=== PATIENT | female | born 1975 | race Caucasian/White ===

== ENCOUNTER 2016-10-28 12:10 | Emergency (ER) | payer OTHER ==
--- NOTE | 2016-10-28 13:38 | UC ---
Ear Complaint HPI - HPI Summary HPI Summary: treated for sinusitis and OM 2 weeks ago with Z-pack. Got better, but didn't totally resolve. FEels like ears have fluid in them, has sinus pressure and a dizzy feeling. Headache. No fever. No vomiting. No blurry vision. No long history of sinus or ear infections. - History of Current Complaint Chief Complaint: UCRespiratory Stated Complaint: HEADACHE,DIZZINESS,EAR PAIN Time Seen by Provider: 10/28/16 13:28 Hx Obtained From: Patient Hx Last Menstrual Period: 10/14/16 Onset/Duration: Gradual Onset, Lasting Weeks - 2 Severity Initially: Mild Severity Currently: Moderate Aggravating Factors: Nothing Alleviating Factors: Nothing Associated Signs/Symptoms: Positive: Hearing Loss - "underwater feeling" - Allergies/Home Medications Allergies/Adverse Reactions: Allergies Allergy/AdvReac Type Severity Reaction Status Date / Time Aspirin Allergy Severe Hives Verified 10/28/16 12:51 Cefprozil [From Cefzil] Allergy Severe Hives Verified 10/28/16 12:51 Ibuprofen Allergy Severe Hives Verified 10/28/16 12:51 Morphine Allergy Intermediate rash, Verified 10/28/16 12:51 vomiting Sulfa Drugs Allergy Intermediate Rash Verified 10/28/16 12:51 Methimazole Allergy Rash Verified 10/28/16 12:51 Topiramate [From Topamax] Allergy Hives Verified 10/28/16 12:51 Penicillins AdvReac Unknown does not Verified 10/28/16 12:51 work Home Medications: Home Medications Zolpidem TAB* [Ambien*] 10 mg PO BEDTIME PRN 10/28/16 [History Confirmed ] PMH/Surg Hx/FS Hx/Imm Hx Endocrine History Of: Reports: Thyroid Disease - graves disease, Hypothyroidism Denies: Diabetes, Hyperthyroidism, Dyslipidemia Cardiovascular History Of: Denies: Cardiac Disorders, Hypertension, Pacemaker/ICD, Myocardial Infarction , Congestive Heart Failure, Atrial Fibrillation, Deep Vein Thrombosis, Bleeding Disorders Respiratory History Of: Denies: COPD, Asthma, Pneumonia, Pulmonary Embolism GI/ History Of: Denies: Gastroesophageal Reflux, Ulcer, Gastrointestinal Bleed, Gall Bladder Disease, Kidney Stones, Diverticulitis, Renal Disease, Urosepsis Neurological History Of: Denies: TIA, CVA, Dementia, Seizures, Migraine Psychological History Of: Denies: Anxiety, Depression, Bipolar Disorder, Schizophrenia, Post Traumatic Stress Disorder Cancer History Of: Denies: Lung Cancer, Colorectal Cancer, Breast Cancer, Prostate Cancer, Cervical Cancer Other History Of: Negative For: HIV, Hepatitis B, Hepatitis C - Surgical History Surgical History: Yes Surgery Procedure, Year, and Place: thyroidectomy,. right pneumo thorax surgery. lung surgery. right hand surgery. CERVICAL HERNIATED DISC FUSION , REMOVAL OF BONE SPURS-DECEMBER 2015 - Family History Known Family History: Positive: None - Social History Occupation: Employed Full-time Lives: With Family Alcohol Use: Rare Substance Use Type: None Smoking Status (MU): Former Smoker Type: Cigarettes Amount Used/How Often: 2 PPD Length of Time of Smoking/Using Tobacco: 22 Years Have You Smoked in the Last Year: No When Did the Patient Quit Smoking/Using Tobacco: 07/09/12 - Immunization History Most Recent Influenza Vaccination: Not the Season Review of Systems Constitutional: Negative Skin: Negative Eyes: Negative ENT: Ear Ache, Nasal Discharge Respiratory: Cough - dry Cardiovascular: Negative Gastrointestinal: Negative Genitourinary: Negative Motor: Negative Neurovascular: Negative Musculoskeletal: Negative Neurological: Headache Psychological: Negative All Other Systems Reviewed And Are Negative: Yes Physical Exam Triage Information Reviewed: Yes Appearance: Well-Appearing, No Pain Distress Vital Signs: Initial Vital Signs Temp 98.3 F 10/28/16 12:52 Pulse 73 10/28/16 12:52 Resp 18 10/28/16 12:52 BP 114/77 10/28/16 12:52 Pulse Ox 99 10/28/16 12:52 Vital Signs Reviewed: Yes Eye Exam: Normal Eyes: Positive: Conjunctiva Clear ENT: Positive: Hearing grossly normal, Pharynx normal, Nasal congestion, TM dull - bilat with fluid levels; right eardrum has a yellowish tinge and bulges slightly. Negative: Tonsillar swelling, Tonsillar exudate, Trismus, Muffled/ hoarse voice Neck exam: Normal Neck: Positive: Supple Respiratory Exam: Normal Respiratory: Positive: Lungs clear, Normal breath sounds, No respiratory distress, No accessory muscle use Cardiovascular Exam: Normal Musculoskeletal Exam: Normal Neurological Exam: Normal Psychological Exam: Normal Skin Exam: Normal Ear Complaint Course/Dx - Differential Dx/Diagnosis Differential Diagnosis/HQI/PQRI: Otitis Externa, Otitis Media Provider Diagnoses: serous otitis media Discharge - Discharge Plan Condition: Stable Disposition: HOME Prescriptions: DOXYcycline CAP(*) [DOXYcycline 100MG CAP(*)] 100 mg PO BID #20 cap Fluticasone NASAL SPRAY 50MCG* [Flonase NASAL SPRAY 50MCG*] 2 spray BOTH NARES DAILY #1 btl Patient Education Materials: Serous Otitis Media (ED) Forms: *Work Release Referrals: Donita Harrison, HAND SLITTER [Primary Care Provider] -
[2016-10-28 13:44] VITALS: BP 121/80
== END 2016-10-28 13:44 | disposition home or self-care (01) ==
LOC: UCCORT 12:10
DX: H65.93 Unspecified nonsuppurative otitis media, bilateral (principal); Z88.6 Allergy status to analgesic agent; Z88.1 Allergy status to other antibiotic agents; Z88.5 Allergy status to narcotic agent; Z88.0 Allergy status to penicillin; Z88.2 Allergy status to sulfonamides; Z87.891 Personal history of nicotine dependence
CPT/HCPCS: 99212; G0463

== ENCOUNTER 2016-12-28 12:02 | Emergency (ER) | payer OTHER ==
[2016-12-28 13:21] VITALS: BP 108/78
--- NOTE | 2016-12-28 14:13 | UC ---
Dental HPI - HPI Summary HPI Summary: Pt states she has had a toothache on the left side since Friday, states she has an appointment Friday with [facility] to have the tooth removed but cannot tolerate the pain until then. Taking tylenol for pain. [ End ] - History of Current Complaint Chief Complaint: UCDentalProblem Stated Complaint: TOOTH PAIN Time Seen by Provider: 12/28/16 14:04 Hx Obtained From: Patient Hx Last Menstrual Period: 12/27/16 ?: No Onset/Duration: Gradual Onset Alleviating: OTC Meds - Allergies/Home Medications Allergies/Adverse Reactions: Allergies Allergy/AdvReac Type Severity Reaction Status Date / Time Aspirin Allergy Severe Hives Verified 12/28/16 13:21 Cefprozil [From Cefzil] Allergy Severe Hives Verified 12/28/16 13:21 Ibuprofen Allergy Severe Hives Verified 12/28/16 13:21 Morphine Allergy Intermediate rash, Verified 12/28/16 13:21 vomiting Sulfa Drugs Allergy Intermediate Rash Verified 12/28/16 13:21 Methimazole Allergy Rash Verified 12/28/16 13:21 Topiramate [From Topamax] Allergy Hives Verified 12/28/16 13:21 Penicillins AdvReac Unknown does not Verified 12/28/16 13:21 work PMH/Surg Hx/FS Hx/Imm Hx Previously Healthy: Yes Endocrine History Of: Reports: Thyroid Disease - graves disease, Hypothyroidism Denies: Diabetes, Hyperthyroidism, Dyslipidemia Cardiovascular History Of: Denies: Cardiac Disorders, Hypertension, Pacemaker/ICD, Myocardial Infarction , Congestive Heart Failure, Atrial Fibrillation, Deep Vein Thrombosis, Bleeding Disorders Respiratory History Of: Denies: COPD, Asthma, Pneumonia, Pulmonary Embolism GI/ History Of: Denies: Gastroesophageal Reflux, Ulcer, Gastrointestinal Bleed, Gall Bladder Disease, Kidney Stones, Diverticulitis, Renal Disease, Urosepsis Neurological History Of: Denies: TIA, CVA, Dementia, Seizures, Migraine Psychological History Of: Denies: Anxiety, Depression, Bipolar Disorder, Schizophrenia, Post Traumatic Stress Disorder Cancer History Of: Denies: Lung Cancer, Colorectal Cancer, Breast Cancer, Prostate Cancer, Cervical Cancer Other History Of: Negative For: HIV, Hepatitis B, Hepatitis C - Surgical History Surgical History: Yes Surgery Procedure, Year, and Place: thyroidectomy,. right pneumo thorax surgery. lung surgery. right hand surgery. CERVICAL HERNIATED DISC FUSION , REMOVAL OF BONE SPURS-DECEMBER 2015 - Family History Known Family History: Positive: None - Social History Occupation: Employed Full-time Lives: With Family Alcohol Use: Rare Substance Use Type: None Smoking Status (MU): Former Smoker Type: Cigarettes Amount Used/How Often: 1ppd Length of Time of Smoking/Using Tobacco: 22 Years Have You Smoked in the Last Year: No When Did the Patient Quit Smoking/Using Tobacco: 07/09/12 Cessation Counseling: Patient Advised to Stop - Immunization History Most Recent Influenza Vaccination: none Review of Systems Constitutional: Negative Skin: Negative Eyes: Negative ENT: Dental Pain Respiratory: Negative Cardiovascular: Negative Gastrointestinal: Negative Genitourinary: Negative Motor: Negative Neurovascular: Negative Musculoskeletal: Negative Neurological: Negative Psychological: Negative All Other Systems Reviewed And Are Negative: Yes Physical Exam Triage Information Reviewed: Yes Appearance: Well-Appearing, No Pain Distress, Well-Nourished Vital Signs: Initial Vital Signs Temp 98.3 F 12/28/16 13:16 Pulse 67 12/28/16 13:16 Resp 16 12/28/16 13:16 BP 108/78 12/28/16 13:16 Pulse Ox 98 12/28/16 13:16 Vital Signs Reviewed: Yes Eye Exam: Normal ENT Exam: Normal Dental Exam: Normal Dental: Positive: Percussion Tenderness @, Gross Decay/Caries @. Negative: Dental Fracture @ Neck exam: Normal Neck: Positive: 1 Respiratory Exam: Normal Cardiovascular Exam: Normal Musculoskeletal Exam: Normal Neurological Exam: Normal Psychological Exam: Normal Skin Exam: Normal Dental Complaint Course/Dx - Course Course Of Treatment: Moderate tooth pain likely failed filling and will need extraction or root canal . No induration or abscess to be drained at this time. advised to stop smoking. - Differential Dx/Diagnosis Differential Diagnosis/Dx: Dental Abscess, Dental Caries Provider Diagnoses: dental abscess Discharge - Discharge Plan Condition: Good Disposition: HOME Prescriptions: Clindamycin Cap(NF) [Cleocin 300 mg Cap(NF)] 300 mg PO TID #21 cap Lidocaine 2% VISCOUS* [Xylocaine 2% Viscous*] 15 ml SWISH SPIT Q4H PRN #1 btl PRN Reason: Pain Methylprednisolone [Medrol Dosepak 4 MG*] 0 mg PO .SEE ANDIE INSTRUCTION #1 tab Patient Education Materials: Dental Abscess (ED) Referrals: Donita Harrison TUNNEL MINER [Primary Care Provider] - 3 Days (Keep dental appt in 2 days ) Images Dental: 1 - dental caries with significant tenderness to palpation and mild swelling of the gums linguial side
== END 2016-12-28 14:24 | disposition home or self-care (01) ==
LOC: UCCORT 12:02
DX: K04.7 Periapical abscess without sinus (principal); E05.00 Thyrotoxicosis with diffuse goiter without thyrotoxic crisis or storm; E89.0 Postprocedural hypothyroidism; Z88.6 Allergy status to analgesic agent; Z88.1 Allergy status to other antibiotic agents; Z88.5 Allergy status to narcotic agent; Z88.0 Allergy status to penicillin; Z88.2 Allergy status to sulfonamides; Z87.891 Personal history of nicotine dependence
CPT/HCPCS: 99212; G0463

== ENCOUNTER 2017-08-01 09:27 | Emergency (ER) | payer OTHER ==
[2017-08-01 10:22] VITALS: BP 123/86
--- NOTE | 2017-08-01 11:45 | RAD ---
INDICATION: Cough and history of spontaneous pneumothorax. COMPARISON: Comparison is made with prior chest x-ray studies from August 04, 2012 and July 10, 2015. TECHNIQUE: Dual-energy PA and lateral views of the chest were obtained. FINDINGS: The heart is within normal limits in size. There is increased soft tissue density in the right cardiophrenic angle which is unchanged from prior studies likely representing a prominent pericardial fat pad. The lungs are slightly hyperinflated and clear. Surgical sutures are noted at the right lung apex. No pneumothorax or pleural effusion is seen. Postsurgical changes are noted in the lower cervical spine. IMPRESSION: NO EVIDENCE FOR ACUTE FINDING.
--- NOTE | 2017-08-01 13:00 | UC ---
Throat Pain/Nasal Matthew HPI - HPI Summary HPI Summary: ONE WEEK OF SINUS PRESSURE SINUS CONGESTION, CHEST CONGESTION, PRODUCTIVE COUGH. MUSCULAR PAIN BETWEEN SCAPULAE, RIB TENDERNESS FROM COUGHING. HAD HISTORY OF SPONTANEOUS PNEUMOTHORAX IN PAST. NO SHORTNESS OF BREATH. NO WHEEZING. NO LEG PAIN. NO RECENT TRAVEL. PAIN ONLY HAPPENS AFTER BOUTS OF COUGHING," FEELS MUSCULAR". - History of Current Complaint Chief Complaint: UCRespiratory Stated Complaint: COLD SYMPTOMS,LUNGS Time Seen by Provider: 08/01/17 11:17 Hx Obtained From: Patient Hx Last Menstrual Period: 07/17/17 Onset/Duration: Gradual Onset, Lasting Days, Still Present Severity: Moderate Pain Intensity: 0 Pain Scale Used: 0-10 Numeric Cough: Productive Associated Signs & Symptoms: Positive: Hoarseness, Sinus Discomfort, Nasal Discharge - Epiglottits Risk Factors Epiglottis Risk Factors: Negative - Allergies/Home Medications Allergies/Adverse Reactions: Allergies Allergy/AdvReac Type Severity Reaction Status Date / Time Aspirin Allergy Severe Hives Verified 08/01/17 10:15 Cefprozil [From Cefzil] Allergy Severe Hives Verified 08/01/17 10:15 Ibuprofen Allergy Severe Hives Verified 08/01/17 10:15 Morphine Allergy Intermediate rash, Verified 08/01/17 10:15 vomiting Sulfa Drugs Allergy Intermediate Rash Verified 08/01/17 10:15 Methimazole Allergy Rash Verified 08/01/17 10:15 Topiramate [From Topamax] Allergy Hives Verified 08/01/17 10:15 Penicillins AdvReac Unknown does not Verified 08/01/17 10:15 work Home Medications: Home Medications Diphenhydramine HCl [Benadryl Allergy] 100 mg PO QPM PRN 08/01/17 [History Confirmed 08/01/17] [id number] [Nyquil Severe Cold/Flu 5-6.25-10-325 mg/15Ml] 2 tab PO QPM PRN 08/01/17 [History Confirmed 08/01/17] PMH/Surg Hx/FS Hx/Imm Hx Previously Healthy: Yes Other History Of: Negative For: HIV, Hepatitis B, Hepatitis C - Surgical History Surgical History: Yes Surgery Procedure, Year, and Place: thyroidectomy,. right pneumo thorax surgery. lung surgery. right hand surgery. CERVICAL HERNIATED DISC FUSION , REMOVAL OF BONE SPURS-DECEMBER 2015 - Family History Known Family History: Positive: None - Social History Occupation: Employed Full-time Lives: With Family Alcohol Use: Rare Substance Use Type: None Smoking Status (MU): Heavy Every Day Tobacco Smoker Type: Cigarettes Amount Used/How Often: 1ppd Length of Time of Smoking/Using Tobacco: 22 Years Have You Smoked in the Last Year: No When Did the Patient Quit Smoking/Using Tobacco: 07/09/12 - Immunization History Most Recent Influenza Vaccination: none Review of Systems Constitutional: Negative Skin: Negative Eyes: Negative ENT: Ear Ache, Nasal Discharge, Sinus Congestion, Sinus Pain/Tenderness Respiratory: Cough Cardiovascular: Negative Gastrointestinal: Negative Genitourinary: Negative Motor: Negative Neurovascular: Negative Musculoskeletal: Negative Neurological: Negative Psychological: Negative Is Patient Immunocompromised?: No All Other Systems Reviewed And Are Negative: Yes Physical Exam Triage Information Reviewed: Yes Appearance: No Pain Distress, Well-Nourished, Ill-Appearing - MILDLY Vital Signs: Initial Vital Signs Temp 98.2 F 08/01/17 10:06 Pulse 84 08/01/17 10:06 Resp 18 08/01/17 10:06 BP 123/86 08/01/17 10:06 Pulse Ox 100 08/01/17 10:06 Vital Signs Reviewed: Yes Eye Exam: Normal ENT: Positive: Nasal congestion, Nasal drainage, TM bulging, TM dull, Sinus tenderness Dental Exam: Normal Neck exam: Normal Neck: Positive: Supple, Nontender, No Lymphadenopathy Respiratory Exam: Other - COUGH Respiratory: Positive: Chest non-tender, Lungs clear, Normal breath sounds, No respiratory distress, No accessory muscle use Cardiovascular Exam: Normal Cardiovascular: Positive: RRR, No Murmur, Pulses Normal, Brisk Capillary Refill Abdominal Exam: Normal Musculoskeletal: Positive: Strength Intact, ROM Intact, No Edema, Other: - PARASPINAL MUSCLES, ADJACENT TO SCAPULA TENDER TO PALPATION WITH PALPABLE SPASMS. Neurological Exam: Normal Psychological Exam: Normal Skin Exam: Normal Throat Pain/Nasal Course/Dx - Differential Dx/Diagnosis Differential Diagnosis/HQI/PQRI: Pharyngitis, Sinusitis, Tonsillitis, URI Provider Diagnoses: SINUSITIS; UPPER RESPIRATORY INFECTION Discharge - Discharge Plan Condition: Stable Disposition: HOME Prescriptions: Benzonatate CAP* [Tessalon 100 MG CAP*] 100 mg PO TID PRN #15 cap PRN Reason: Cough DOXYcycline CAP(*) [DOXYcycline 100MG CAP(*)] 100 mg PO BID #20 cap Patient Education Materials: Sinusitis (ED), Acute Bronchitis (ED) Referrals: Donita Harrison DETECTIVE BUREAU CHIEF [Primary Care Provider] -
== END 2017-08-01 11:59 | disposition home or self-care (01) ==
LOC: UCCORT 09:27
DX: J32.9 Chronic sinusitis, unspecified (principal); J06.9 Acute upper respiratory infection, unspecified; Z88.6 Allergy status to analgesic agent; Z88.1 Allergy status to other antibiotic agents; Z88.5 Allergy status to narcotic agent; Z88.0 Allergy status to penicillin; Z88.2 Allergy status to sulfonamides; Z87.891 Personal history of nicotine dependence
CPT/HCPCS: 71020; 99212; G0463

== ENCOUNTER 2019-07-14 08:00 | Emergency (ER) | payer BC ==
[2019-07-14 08:18] VITALS: BP 118/80
--- NOTE | 2019-07-14 08:32 | ED ---
Throat Pain/Nasal Congestion - HPI Summary HPI Summary: 43 yr old female with the complaint of bilateral ear pressure, left more than right. Onset of symptoms a couple of days ago. No nausea and vomiting. No dizziness. She has no runny nose, cough or sore throat. No sinus pressure. Her symptoms are moderate. - History of Current Complaint Chief Complaint: UCEar Time Seen by Provider: 07/14/19 08:11 - Allergies/Home Medications Allergies/Adverse Reactions: Allergies Allergy/AdvReac Type Severity Reaction Status Date / Time aspirin Allergy Hives Verified 07/14/19 08:22 cefprozil [From Cefzil] Allergy Hives Verified 07/14/19 08:22 methimazole Allergy Rash Verified 07/14/19 08:22 morphine Allergy Rash Verified 07/14/19 08:22 Penicillins Allergy See Comment Verified 07/14/19 08:22 Sulfa (Sulfonamide Allergy Rash Verified 07/14/19 08:22 Antibiotics) topiramate [From Topamax] Allergy Hives Verified 07/14/19 08:22 Home Medications: Home Medications Acetaminophen [Acetaminophen Extra Strength] 1,000 mg PO ONCE PRN 07/14/19 [ History Confirmed 07/14/19] LORazepam TAB(*) [Ativan 0.5 MG TAB (*)] 0.5 mg PO BID PRN 07/14/19 [History Confirmed 07/14/19] Levothyroxine TAB* [Synthroid TAB*] 100 mcg PO DAILY 07/14/19 [History Confirmed 07/14/19] Liothyonine Sodium 10 mcg PO DAILY 07/14/19 [History] PARoxetine HCL TAB* [Paxil TAB*] 10 mg PO DAILY 07/14/19 [History Confirmed ] PMH/Surg Hx/FS Hx/Imm Hx Endocrine/Hematology History: Reports: Hx Thyroid Disease - graves disease Denies: Hx Diabetes Cardiovascular History: Denies: Hx Congestive Heart Failure, Hx Deep Vein Thrombosis, Hx Hypertension , Hx Myocardial Infarction, Hx Pacemaker/ICD Respiratory History: Denies: Hx Asthma, Hx Chronic Obstructive Pulmonary Disease (COPD), Hx Lung Cancer, Hx Pneumonia, Hx Pulmonary Embolism GI History: Denies: Hx Gall Bladder Disease, Hx Gastrointestinal Bleed, Hx Ulcer, Hx Urosepsis History: Denies: Hx Kidney Stones, Hx Renal Disease Neurological History: Denies: Hx Dementia, Hx Migraine, Hx Seizures, Hx Transient Ischemic Attacks (TIA) Psychiatric History: Denies: Hx Anxiety, Hx Depression, Hx Schizophrenia, Hx Bipolar Disorder - Surgical History Surgery Procedure, Year, and Place: thyroidectomy,. right pneumo thorax surgery. lung surgery. right hand surgery. CERVICAL HERNIATED DISC FUSION , REMOVAL OF BONE SPURS-DECEMBER 2015 Infectious Disease History: No Infectious Disease History: Denies: Hx Clostridium Difficile, Hx Hepatitis, Hx Human Immunodeficiency Virus (HIV), Hx of Known/Suspected MRSA, Hx Shingles, Hx Known/Suspected VRSA, History Other Infectious Disease, Traveled Outside the [place] in Last 30 Days - Family History Known Family History: Positive: None - Social History Occupation: Employed Full-time Alcohol Use: Rare Substance Use Type: Reports: Prescribed Hx Tobacco Use: Yes Smoking Status (MU): Heavy Every Day Tobacco Smoker Type: Cigarettes Amount Used/How Often: 1ppd Length of Time of Smoking/Using Tobacco: 22 Years Have You Smoked in the Last Year: No Review of Systems Constitutional: Negative Positive: Ear Ache All Other Systems Reviewed And Are Negative: Yes Physical Exam Triage Information Reviewed: Yes Vital Signs On Initial Exam: Initial Vitals Temp Pulse Resp BP Pulse Ox 98 F 90 16 118/80 99 07/14/19 08:14 07/14/19 08:14 07/14/19 08:14 07/14/19 08:14 07/14/19 08:14 Vital Signs Reviewed: Yes Appearance: Positive: Well-Appearing, No Pain Distress Skin: Positive: Warm, Skin Color Reflects Adequate Perfusion Head/Face: Positive: Normal Head/Face Inspection Eyes: Positive: EOMI ENT: Positive: Pharynx normal, TMs normal, Other - external canals WNL.. Negative: Sinus tenderness Neck: Positive: Supple, Nontender, No Lymphadenopathy Respiratory/Lung Sounds: Positive: Clear to Auscultation, Breath Sounds Present Cardiovascular: Positive: RRR. Negative: Murmur Abdomen Description: Negative: Distended Musculoskeletal: Positive: Strength/ROM Intact Neurological: Positive: Sensory/Motor Intact, Alert, Oriented to Person Place, Time, CN Intact II-III, Normal Gait, Finger to Nose, Speech Normal Psychiatric: Positive: Normal Diagnostics - Vital Signs Vital Signs Temp Pulse Resp BP Pulse Ox 07/14/19 08:14 98 F 90 16 118/80 99 - Laboratory Lab Statement: Any lab studies that have been ordered have been reviewed, and results considered in the medical decision making process. EENT Course/Dx - Course Course Of Treatment: 43 yr old with earache left more than right. No clear findings. recommend humidfy home air, chew gum, tylenol. - Diagnoses Provider Diagnoses: Earache on left, Earache on right Discharge ED - Sign-Out/Discharge Documenting (check all that apply): Patient Departure All imaging exams completed and their final reports reviewed: No Studies - Discharge Plan Condition: Good Disposition: HOME Patient Education Materials: Earache (ED) Referrals: Donita Harrison SHAREPOINT NET DEVELOPER [Primary Care Provider] - 2 Days - Billing Disposition and Condition Condition: GOOD Disposition: Home
== END 2019-07-14 08:32 | disposition home or self-care (01) ==
LOC: UCCORT 08:00
DX: H92.03 Otalgia, bilateral (principal); F17.210 Nicotine dependence, cigarettes, uncomplicated; E05.00 Thyrotoxicosis with diffuse goiter without thyrotoxic crisis or storm; Z88.0 Allergy status to penicillin; Z88.1 Allergy status to other antibiotic agents; Z88.2 Allergy status to sulfonamides; Z88.5 Allergy status to narcotic agent; Z88.6 Allergy status to analgesic agent; Z88.8 Allergy status to other drugs, medicaments and biological substances; Z79.890 Hormone replacement therapy
CPT/HCPCS: 99211; G0463

== ENCOUNTER 2019-10-29 09:50 | Emergency (ER) | payer BC, MEDICAID ==
[2019-10-29 10:25] VITALS: BP 124/78
--- NOTE | 2019-10-29 10:46 | UC ---
Dental HPI - HPI Summary HPI Summary: Pt presents with c/o right upper jaw pain and swelling. Pt has "broken" tooth and states she ate a sharp foof ( doritos) and had pointed end "stab" her right upper gum where broken tooth is. Pt c/o swelling, distasteful discharge and halitosis. - History of Current Complaint Chief Complaint: UCDentalProblem Stated Complaint: DENTAL Time Seen by Provider: 10/29/19 10:31 Hx Obtained From: Patient Hx Last Menstrual Period: 10/18/19 ?: No Onset/Duration: Sudden Onset, Lasting Days, Still Present Severity: Moderate Pain Intensity: 6 Aggravating Factor(s): Chewing Alleviating Factor(s): Nothing Related History: Previous Dental Care on Same Tooth, Discharge, Swelling - Allergies/Home Medications Allergies/Adverse Reactions: Allergies Allergy/AdvReac Type Severity Reaction Status Date / Time Adhesive Tape Allergy Itching Verified 10/29/19 10:17 aspirin Allergy Hives Verified 10/29/19 10:16 benzonatate Allergy Rash Verified 10/29/19 10:17 [From Tessalon Perles] cefprozil [From Cefzil] Allergy Hives Verified 10/29/19 10:16 ciprofloxacin Allergy Rash Verified 10/29/19 10:17 codeine Allergy Rash Verified 10/29/19 10:17 ibuprofen Allergy Anaphylatic Verified 10/29/19 10:16 Shock methimazole Allergy Rash Verified 10/29/19 10:16 morphine Allergy Rash Verified 10/29/19 10:16 Penicillins Allergy See Comment Verified 10/29/19 10:16 Sulfa (Sulfonamide Allergy Rash Verified 10/29/19 10:16 Antibiotics) sulfamethoxazole Allergy Rash Verified 10/29/19 10:17 [From Bactrim] topiramate [From Topamax] Allergy Hives Verified 10/29/19 10:16 trimethoprim [From Bactrim] Allergy Rash Verified 10/29/19 10:17 Home Medications: Home Medications LORazepam TAB(*) [Ativan 0.5 MG TAB (*)] 1 mg PO BID PRN 07/14/19 [History Confirmed 10/29/19] Levothyroxine TAB* [Synthroid 100 MCG TAB*] 100 mcg PO DAILY 07/14/19 [History Confirmed 10/29/19] Liothyonine Sodium 10 mcg PO DAILY 07/14/19 [History Confirmed 10/29/19] PARoxetine HCL TAB* [Paxil TAB*] 10 mg PO DAILY 07/14/19 [History Confirmed ] Acetaminophen [Tylenol Extra Strength] 1,000 mg PO ONCE 10/29/19 [History Confirmed 10/29/19] clindamycin HCL [Clindamycin HCl] 300 mg PO Q12H #20 capsule 10/29/19 [Rx] PMH/Surg Hx/FS Hx/Imm Hx Previously Healthy: Yes Endocrine History: Thyroid Disease Psychological History: Anxiety Other History Of: Negative For: HIV, Hepatitis B, Hepatitis C - Surgical History Surgical History: Yes Surgery Procedure, Year, and Place: thyroidectomy. right pneumo thorax surgery. lung surgery. right hand surgery. CERVICAL HERNIATED DISC FUSION , REMOVAL OF BONE SPURS-DECEMBER 2015 - Family History Known Family History: Positive: Cardiac Disease - Social History Occupation: Employed Full-time Lives: With Family Alcohol Use: Rare Substance Use Type: None Smoking Status (MU): Former Smoker Type: Cigarettes Amount Used/How Often: 1ppd Length of Time of Smoking/Using Tobacco: 22 Years Have You Smoked in the Last Year: Yes When Did the Patient Quit Smoking/Using Tobacco: 09/22/2019 - Immunization History Most Recent Influenza Vaccination: none Vaccination Up to Date: No Review of Systems All Other Systems Reviewed And Are Negative: Yes Constitutional: Positive: Negative Skin: Positive: Negative Eyes: Positive: Negative ENT: Positive: Dental Pain, Ear Ache Respiratory: Positive: Negative Cardiovascular: Positive: Negative Gastrointestinal: Positive: Negative Genitourinary: Positive: Negative Motor: Positive: Negative Neurovascular: Positive: Negative Musculoskeletal: Positive: Negative Neurological/Mental Status: Positive: Negative Psychological: Positive: Negative Is Patient Immunocompromised?: No Physical Exam Triage Information Reviewed: Yes Appearance: Pain Distress Vital Signs: Initial Vital Signs Temp 98.6 F 10/29/19 10:20 Pulse 66 10/29/19 10:20 Resp 15 10/29/19 10:20 BP 124/78 10/29/19 10:20 Pulse Ox 100 10/29/19 10:20 Vital Signs Reviewed: Yes Eye Exam: Normal ENT: Positive: TM bulging - bilateral Dental: Positive: Percussion Tenderness @, Dental Fracture @ - right upper #3 Neck exam: Normal Respiratory Exam: Normal Respiratory: Positive: No respiratory distress Musculoskeletal Exam: Normal Neurological Exam: Normal Psychological Exam: Normal Skin Exam: Normal Dental Complaint Course/Dx - Differential Dx/Diagnosis Differential Diagnosis/Dx: Dental Abscess, Dental Caries, Fractured Tooth Provider Diagnosis: Dental abscess, Dental injury Discharge ED - Sign-Out/Discharge Documenting (check all that apply): Patient Departure All imaging exams completed and their final reports reviewed: No Studies - Discharge Plan Condition: Stable Disposition: HOME Prescriptions: clindamycin HCL [Clindamycin HCl] 300 mg PO Q12H #20 capsule Patient Education Materials: Dental Abscess (ED) Referrals: Claude Harvey MD [Primary Care Provider] - If Needed Additional Instructions: Please follow up with a dental care provider as soon as possible. - Billing Disposition and Condition Condition: STABLE Disposition: Home
== END 2019-10-29 10:56 | disposition home or self-care (01) ==
LOC: UCCORT 09:50
DX: K04.7 Periapical abscess without sinus (principal); S09.93XA Unspecified injury of face, initial encounter; E07.9 Disorder of thyroid, unspecified; F41.9 Anxiety disorder, unspecified; H92.09 Otalgia, unspecified ear; X58.XXXA Exposure to other specified factors, initial encounter; Y92.9 Unspecified place or not applicable; Z91.09 Other allergy status, other than to drugs and biological substances; Z88.0 Allergy status to penicillin; Z88.1 Allergy status to other antibiotic agents; Z88.2 Allergy status to sulfonamides; Z88.5 Allergy status to narcotic agent; Z88.6 Allergy status to analgesic agent; Z88.8 Allergy status to other drugs, medicaments and biological substances; Z79.890 Hormone replacement therapy; Z79.899 Other long term (current) drug therapy; Z87.891 Personal history of nicotine dependence
CPT/HCPCS: 99212; G0463